=== PATIENT | female | born 1985 | race Caucasian/White ===

== ENCOUNTER 2017-08-31 15:50 | Inpatient (IN) ==
[2017-08-31] MEDS ORDERED: RINGER'S SOLUTION,LACTATED 1,000 ML IV PRN (16:15)
[2017-08-31] MEDS ORDERED: OXYTOCIN/DEXTROSE 5%-WATER 30 UNITS/500 ML BAG IV ONE ×2 (16:15→23:35)
[2017-08-31] MEDS ORDERED: PENICILLIN G POTASSIUM 5 MILLIONUNT in DEXTROSE 5 % IN WATER 100 ML IV ONE ×2 (16:15)
[2017-08-31] MEDS ORDERED: RINGER'S SOLUTION,LACTATED 1,000 ML IV ONE (16:15)
[2017-08-31] MEDS ORDERED: ONDANSETRON HCL/PF 2 MG/ML VIAL IV PRN ×2 (16:15→18:28)
[2017-08-31] MEDS ORDERED: DEXTROSE 5%-LACTATED RINGERS 1,000 ML IV PRN (16:15)
[2017-08-31] MEDS ORDERED: BUPIVACAINE HCL/0.9 % NACL/PF 250 ML EP PRN (18:28)
[2017-08-31] MEDS ORDERED: NALOXONE HCL 1 MG/1 ML SYRG IV PRN (18:28)
[2017-08-31] MEDS ORDERED: fentaNYL CITRATE/PF 50 MCG/ML AMPUL IT SCH (18:30)
--- NOTE | 2017-08-31 20:13 | OR ---
Anesthesia Procedure Note - Anesthesia Procedure Note Narrative: Vital Signs - Last Taken Temp 36.5 C 08/31/17 19:48 Pulse 88 08/31/17 19:48 Resp 18 08/31/17 19:48 BP 127/74 08/31/17 19:48 Pulse Ox 99 08/31/17 19:48 08/31/17 20:12 ANESTHESIA PROCEDURE NOTE Date of Procedure: 08/31/2017 Time of procedure: 2004. Performed by: Shon Andrea CRNA Account General Manager: None. Preprocedure diagnosis: Active labor. Post procedure diagnosis: Same. Procedure: Insertion of labor epidural. Indications: The patient is a 32 -year-old multigravida female in active labor requesting labor epidural for pain management. Findings: See below. Details of the procedure: The patient was placed in a sitting position. Back was prepped with DuraPrep. Patient was then draped in a sterile fashion. Lidocaine 1% was infiltrated to the skin and subcutaneous tissues at the level of the L3 4 interspace. The epidural space was identified using a 18-gauge Tuohy needle with [id number] technique. Epidural catheter was inserted without difficulty. Negative test dose was elicited using 5 mL of 1.5 % preservative-free lidocaine plus epinephrine 1 200,000. The epidural catheter was then taped and secured in place. EBL: Minimal. Fluids: N/A. Specimen: N/A. Post procedure condition: The patient tolerated the procedure well. No complications were noted. Thank you for this consultation. Murillo CRNA
[2017-08-31] MEDS ORDERED: PENICILLIN G POTASSIUM 2.5 MILLIONUNT in DEXTROSE 5 % IN WATER 100 ML IV SCH ×2 (20:15)
--- NOTE | 2017-08-31 22:01 | PN ---
Progess Note - Interim Date: 08/31/17 Time: 21:51 Narrative: 08/31/17 21:51 Pt doing well. Starting to feel contractions more. SVE: 6-7/90/-2, AROM-clear liquid FHTs:120's mod ching, no decels, +accels [place]: q2-4 min A/P: GBS pos: s/p PCN Pitocin prn Anticipate
[2017-08-31] MEDS ORDERED: GLYCERIN/WITCH HAZEL LEAF 40 APPL BOX TP PRN (23:35)
[2017-08-31] MEDS ORDERED: BISACODYL 10 MG SUPP.RECT RC PRN (23:35)
[2017-08-31] MEDS ORDERED: SENNOSIDES 8.6 MG TABLET PO PRN (23:35)
[2017-08-31] MEDS ORDERED: HYDROCORTISONE 30 APPL TUBE TP PRN (23:35)
[2017-08-31] MEDS ORDERED: BENZOCAINE/MENTHOL 81 SPRAY CAN TP PRN (23:35)
[2017-08-31] MEDS ORDERED: oxyCODONE HCL/ACETAMINOPHEN 1 TAB TABLET PO PRN (23:35)
--- NOTE | 2017-08-31 23:40 | OR ---
Operative Report - Dictated Report Narrative: Spontaneous Vaginal Delivery Viable male with APGARS of 7 and 8. Presentation was RENU. A loose nuchal cord was reduced prior to delivery of the head. the right anterior shoulder delivered with gentle downward traction followed by the posterior shoulder and remainder of the baby. The baby was placed on the maternal abdomen, dried and stimulated, and cord was clamped and cut after 60 seconds. The baby was then taken to the warmer. Weight: TBA Placenta was delivered spontaneously and intact. No lacerations were noted. Estimated blood loss: 100 ml Mother and baby tolerated delivery well. History for Definition: * The number of deliveries resulting in a live the patient experienced prior to current hospitalization * The previous delivery of live twins or any live multiple gestation is considered one live event. *If primagravida or nulliparous is documented select zero for the number of previous live births. Live Events: 3
[2017-09-01] MEDS: IBUPROFEN 800 MG TABLET PO PRN ×4 (00:36→23:54)
[2017-09-01] MEDS: oxyCODONE HCL/ACETAMINOPHEN 1 TAB TABLET PO PRN ×7 (00:36→23:53)
[2017-09-01] MEDS: DOCUSATE SODIUM 100 MG CAPSULE PO SCH ×2 (09:20→23:53)
--- NOTE | 2017-09-01 12:19 | PN ---
Subjective - Date and Time Seen Date: 09/01/17 Time: 12:18 Objective - Vitals Vitals: Last Vital Signs Temp 36.2 C L 09/01/17 08:15 Pulse 74 09/01/17 08:15 Resp 20 09/01/17 08:15 BP 118/69 09/01/17 08:15 Pulse Ox 100 09/01/17 08:15 Patient denies complaints. Breast-feeding Lochia wnl Abdomen - soft, nontender Uterus - firm, at umbilicus - 1 No calf tenderness Impression: day #1 - s/p spontaneous vaginal delivery. Plan: Continue routine care
[2017-09-01 17:10] LABS: Cocaine Ur Negative (NEGATIVE); Urine Barbiturate Negative (NEGATIVE); Urine Benzodiazepines Negative (NEGATIVE); Urine Opiates Negative (NEGATIVE); Urine PCP Negative (NEGATIVE); Urine THC Positive (NEGATIVE)
[2017-09-02] MEDS: IBUPROFEN 800 MG TABLET PO PRN ×2 (06:32→13:48)
[2017-09-02] MEDS: oxyCODONE HCL/ACETAMINOPHEN 1 TAB TABLET PO PRN ×3 (06:32→13:48)
[2017-09-02] MEDS: DOCUSATE SODIUM 100 MG CAPSULE PO SCH ×2 (06:33→08:11)
[2017-09-02 06:53] VITALS: BP 113/75
--- NOTE | 2017-09-02 14:12 | PN ---
Subjective - Date and Time Seen Date: 09/02/17 Time: 14:12 Objective - Vitals Vitals: Last Vital Signs Temp 36.3 C L 09/02/17 06:30 Pulse 71 09/02/17 06:30 Resp 18 09/02/17 06:30 BP 113/75 09/02/17 06:30 Pulse Ox 99 09/02/17 06:30 Patient denies complaints. Lochia wnl Abdomen - soft, nontender Uterus - firm, at umbilicus - 2 No calf tenderness Impression: day #2 - s/p spontaneous vaginal delivery. Plan: Routine discharge instructions - Abnormal Lab Findings Abnormal Lab Findings: Abnormal Lab Results 08/31/17 Range/Units 15:50 Urine Marijuana (THC) Positive H (NEGATIVE)
== END 2017-09-02 14:25 | disposition home or self-care (01) | DRG 775 ==
LOC: OB 15:50
PROVIDERS: ADMIT Obstetrics & Gynecology Gynecologic Oncology; ATTEND Obstetrics & Gynecology Gynecologic Oncology
DX: O69.81X0 Labor and delivery complicated by cord around neck, without compression, not applicable or unspecified; F12.90 Cannabis use, unspecified, uncomplicated; Z37.0 Single live birth; O99.824 Streptococcus B carrier state complicating childbirth; O99.324 Drug use complicating childbirth; Z3A.38 38 weeks gestation of pregnancy; F41.8 Other specified anxiety disorders
CPT/HCPCS: 59025; 80307; G0479